=== PATIENT | female | born 1995 | race Two or more races ===

== ENCOUNTER 2024-04-14 15:01 | Emergency (ER) | payer OTHER ==
[~2024-04-14] VITALS: Ht 167.6 cm; Wt 114.3 kg
[2024-04-14] MEDS ORDERED: BUSPIRONE HCL15 MG PO (15:51)
[2024-04-14] MEDS ORDERED: ZYRTEC-D ER 51 EACH PO (15:51)
[2024-04-14] MEDS ORDERED: KETOROLAC TROMETHAMINE 30 MG VIAL IM STA (17:52)
== END 2024-04-14 18:06 | disposition home or self-care (01) ==
LOC: ER 15:03
DX: M94.0 Chondrocostal junction syndrome [Tietze] (principal)